=== PATIENT | male | born 1950 | race Caucasian/White ===

== ENCOUNTER 2021-07-02 11:59 | Emergency (ER) | payer MEDICARE, BC, SELFPAY ==
[2021-07-02 12:02] VITALS: BP 142/88; PULSE 64; RESP 16; TEMP 36.8; O2SAT 89; BMI 34.5
[2021-07-02 12:08] VITALS: O2SAT 96
--- NOTE | 2021-07-02 12:15 | EDS_ITS ---
HPI History of Present Illness Chief Complaint: General Illness Informant: patient and family Narrative Narrative: 71-year-old male states for the past several days has had fatigue fever loss of taste and smell. Patient states that he really has not had much of an appetite. Today he was sitting as when [place] got up to go inside the house when he had a syncopal episode. He states he did not hurt himself. He states that he feels fine at the current moment. Son states that he does not want them to be tested for Covid as it does not exist. [facility] Medical History (Updated 07/02/21 @ 13:[address] Blayne Preston DO) High cholesterol HTN (hypertension) Allergy/AdvReac Type Severity Reaction Status Date / Time No Known Allergies Allergy Verified 07/02/21 12:04 Social History (Updated 07/02/21 @ 12:[address] Blayne Preston DO) Smoking Status: Current every day smoker tobacco type: cigarettes substance use type: does not use ROS ROS ED ROS Narrative Generalized fatigue Constitutional Constitutional ED: Reports chills, fever(s) and sweats; Denies weight loss Eyes Eyes: Denies change in vision or diplopia ENT ENT ED: Reports rhinorrhea and other Details: Loss of taste/smell ; Denies ear pain or sore throat Cardiovascular Cardiovascular: Denies chest pain, orthopnea, palpitations or racing heartbeat Respiratory/Chest Respiratory/Chest: Denies cough, dyspnea or orthopnea Gastrointestinal Gastrointestinal: Denies abdominal pain, diarrhea, nausea or vomiting Genitourinary Genitourinary ED: Denies dysuria, hematuria or urinary frequency Musculoskeletal Musculoskeletal: Reports myalgias; Denies arthralgias Integumentary Denies abscess or rash Neurologic Neurologic: Denies headache(s) or weakness Psychiatric Psychiatric: Denies anxiety, depression, suicidal ideation or suicidal thoughts Endocrine Endocrinology: Denies polydipsia, polyphagia or polyuria Allergic/Immunologic Allergic/Immunologic ED: Denies mouth swelling, tongue swelling or urticaria EXAM Physical Exam Const Vital Signs: 07/02/21 12:02 07/02/21 12:08 07/02/21 13:01 Temperature 98.3 F Temperature Source Oral Pulse Rate 64 70 Respiratory Rate 16 20 H Respiratory Effort Normal Non-Labored Respiratory Pattern Normal Blood Pressure 142/88 H 161/74 H Blood Pressure Mean 106 103 Pulse Ox 89 96 93 Oxygen Delivery Method Room Air Nasal Cannula Room Air Oxygen Flow Rate (L/min) 2 Positive well nourished and well developed General Appearance ED: well developed HEENT Reports normocephalic, head/scalp atraumatic and moist mucous membranes Eyes PERRL and EOMs intact bilaterally Neck no lymphadenopathy, supple and no JVD Resp normal respiratory effort and clear to auscultation bilaterally Cardio regular rate, regular rhythm and no murmurs GI normal to inspection, nondistended, normoactive bowel sounds and non-tender Palpation: soft Back/Spine no CVA tenderness and normal ROM Extremity normal to inspection General Extremety ED: Negative for edema General Extremity: Negative for edema Neuro oriented x3 and CN's II-XII intact bilaterally Sensorium / Orientation: alert Motor Exam: strength 5/5 throughout Psych mental status grossly normal Mood & Affect: Negative for depressed or tearful Skin no rashes or lesions noted and no wounds MDM MDM MDM Narrative Medical decision making narrative: Patient is noted to be leukopenic at 3.8. D- dimer 0.64 which age-adjusted into the normal range. His BUN of 32 with a creatinine 2.35. unfortunately I do not have any old labs to compare this to. I asked that the patient speak with his doctor as he does not recall patient's troponin is 20. My interpretation of the chest x-ray is no focal infiltrates. He has had no events on the monitor. Family is adamant that the only people who get Covid who are the ones who have gotten the jab. Family does not want him Covid tested. My suspicion is that he has Covid and that his fatigue and fevers and loss of taste cough is Covid. He is not currently requiring supplemental oxygen. Patient will be discharged home. Lab Data Attestation: I reviewed the patient's lab results. Labs: Laboratory Results - last 24 hr 07/02/21 07/02/21 07/02/21 12: 12: 12: WBC 3.8 L RBC 5.40 Hgb 16.1 Hct 49.0 MCV 90.7 MCH 29.8 MCHC 32.9 RDW Std Deviation 42.6 RDW Coeff of Hortencia 12.9 Plt Count 117 L MPV 11.6 Immature Gran % (Auto) 1.300 H Neut % (Auto) 59.9 Lymph % (Auto) 31.2 Harris % (Auto) 6.5 Eos % (Auto) 0.3 Baso % (Auto) 0.8 Absolute Neuts (auto) 2.3 Absolute Lymphs (auto) 1.19 Nucleated RBC % 0 D-Dimer Quant (PE/DVT) 0.64 H* Sodium 135 L Potassium 5.2 H Chloride 102 Carbon Dioxide 24.0 Anion Gap 9 BUN 32 H Creatinine 2.35 H Estim Creat Clear Calc 29.82 Est GFR (MDRD) Af Amer 35 L Est GFR (MDRD) Non-Af 29 L BUN/Creatinine Ratio 13.6 Glucose 156 H Calcium 8.5 Total Bilirubin 1.00 AST 87 H ALT 47 Alkaline Phosphatase 77 Troponin I High Sens 20 Total Protein 7.7 Albumin 3.5 Globulin 4.2 Albumin/Globulin Ratio 0.8 L Radiography Diagnostic Testing: Clinical Impression(s) from Imaging Studies Chest X-Ray 07/02/21 12:32 IMPRESSION: Prominence of the bronchovascular and interstitial lung markings, no evidence of traumatic chest pathology. No evidence of focal lung infiltrates or consolidations. Electronically Signed: Andrade Cantor MD at 12:57 EST Tel , Service support , EKG Initial EKG: Attestation: I personally reviewed and interpreted this EKG as follows: Comments: Normal sinus rhythm with a ventricular rate of 69 bpm Discharge Plan Triage Chief Complaint: General Illness ED Provider: Blayne Preston Dx/Rx/DC Orders Clinical Impression: Syncope, Acute viral syndrome Instructions: ED Fainting, Uncertain Cause, ED Viral Syndrome (Adult) Primary Care Provider: Jimmie Loera NP Referrals: Jimmie Loera CREATIVE DEVELOPER, [facility] [Primary Care Provider] - As soon as possible Disposition Disposition: Home, Self Care
--- NOTE | 2021-07-02 12:19 | EKG12_ITS ---
Test Reason : WEAKNESS Blood Pressure : / mmHG Vent. Rate : 069 BPM Atrial Rate : 069 BPM P-R Int : 176 ms QRS Dur : 112 ms QT Int : 458 ms P-R-T Axes : 036 023 -43 degrees QTc Int : 490 ms Normal sinus rhythm ST & T wave abnormality, consider inferolateral ischemia Prolonged QT Abnormal ECG Confirmed by DIANA POWELL, ANAI ([id number]), editor dictionary MARIXA JEROME ([id number]) on 07/05/2021 9:10:57 AM Referred By: OZIEL Confirmed By:ANAI ORTIZ MD
--- NOTE | 2021-07-02 12:32 | RAD_ITS ---
INDICATION: syncope EXAMINATION/TECHNIQUE: X-RAY - XR Chest 1 View COMPARISON: None. FINDINGS: Poor inspiratory effort limits evaluation. LINES/DEVICES: None. LUNGS: Premature cuffing bilateral hilar prominence is seen. Prominence of the bronchovascular and interstitial lung markings visualized bilaterally with scattered areas of subtle airspace opacification seen but no evidence of focal lung consolidation is visualized, no evidence of focal lung infiltrates. No evidence of pneumothorax or pleural effusion. No evidence of parenchymal lung masses seen. MEDIASTINUM AND CARDIOVASCULAR STRUCTURES: Atherosclerotic calcifications visualized in the aortic arch, the cardiovascular silhouette is slightly prominent however this could be artifactual due to the poor inspiratory effort. BONES AND SOFT TISSUES: Degenerative bone changes seen. RAD/Chest 1 View (Portable) IMPRESSION: Prominence of the bronchovascular and interstitial lung markings, no evidence of traumatic chest pathology. No evidence of focal lung infiltrates or consolidations. Electronically Signed: Andrade Cantor MD at 12:57 EST Tel , Service support ,
[2021-07-02 12:43] LABS: Absolute Lymphocyte Count 1.19 X10^3/uL (0.83-4.51); Absolute Neutrophil Count 2.3 X10^3/uL (2.0-7.7); Basophil# 0.03 X10^3/uL; Basophil% 0.8 % (0-1); Eosinophil# 0.01 X10^3/uL; Eosinophils% 0.3 % (0-5); Hemoglobin 16.1 g/dL (13.0-16.5); Lymphocyte # 1.19 X10^3/ul (0.83-4.51); Lymphocyte % 31.2 % (19-41); Mean Corp Hgb Conc 32.9 g/dL (32-36); Mean Corpuscular Hgb 29.8 pg (27.0-32.0); Mean Corpuscular Volume 90.7 fL (80-94); Mean Platelet Vol. 11.6 fl (6.2-12.0); Monocyte# 0.25 X10^3/uL; Monocyte% 6.5 % (0-10); NRBC Flagged by Analyzer 0 % (0-5); Neutrophil # 2.29 X10^3/uL (2.7-7.7); Neutrophil % 59.9 % (47-70); Platelet Count 117 K/mm3 (150-450); RBC Distribution Width CV 12.9 % (11.6-14.6); RBC Distribution Width SD 42.6 fl (35.1-43.9); White Blood Count 3.8 K/mm3 (4.4-11.0)
[2021-07-02 12:49] LABS: D-Dimer Quantitative (DVT/PE) 0.64 FEU/ug/m (0.27-0.49)
[2021-07-02 12:54] LABS: ALB/GLOB Ratio 0.8 RATIO (0.9-2.4); AST(SGOT) 87 U/L (15-37); Alanine Aminotransfer ALT/SGPT 47 U/L (16-61); Albumin, Serum 3.5 g/dL (3.2-5.0); Alkaline Phosphatase 77 U/L (45-117); Anion Gap 9 (5-15); BUN 32 mg/dL (7-18); BUN/Creat Ratio 13.6 RATIO (10-20); Calcium,Total 8.5 mg/dL (8.5-10.1); Chloride 102 mmol/L (98-107); Creatinine, Serum 2.35 mg/dL (0.70-1.30); EST Glomerular Filtration Rate 29 mL/min (>60); Est Glom Filt Rate - Afr Amer 35 mL/min (>60); Estimated Creatinine Clearance 29.82 ml/min; Globulin 4.2 g/dL (2.2-4.2); Glucose 156 mg/dL (74-106); Potassium 5.2 mmol/L (3.5-5.1); Protein, Total 7.7 g/dL (6.4-8.2); Sodium Level 135 mmol/L (136-145); Troponin-I HS 20 pg/mL (3.0-78.0)
[2021-07-02 13:01] VITALS: BP 161/74; PULSE 70; RESP 20; O2SAT 93
[2021-07-02 13:38] VITALS: O2SAT 94
[2021-07-02 14:09] VITALS: BP 164/74; PULSE 78; RESP 19; O2SAT 95
== END 2021-07-02 14:10 | disposition home or self-care (01) ==
PROVIDERS: Emergency Provider Emergency Medicine; PCP Nurse Practitioner Family
DX: B34.9 Viral infection, unspecified (principal); R55 Syncope and collapse; F17.210 Nicotine dependence, cigarettes, uncomplicated
CPT/HCPCS: 71045; 80053; 84484; 85025; 85379; 93005; 99285; A4216